=== PATIENT | female | born 1965 | race Caucasian/White ===

== ENCOUNTER 2021-12-27 13:25 | Inpatient (IN) | payer OTHER ==
[2021-12-27 15:24] LABS: BASO % 0.9 % (0-2.0); HEMATOCRIT 37.2 % (32.4-45.2); HEMOGLOBIN 12.9 GM/dL (10.7-15.3); LYMPH % 29.3 % (8-40); MCH 30.3 pg (25.7-33.7); MCHC 34.7 g/dl (32.0-36.0); MEAN CELL VOLUME 87.3 fl (80-96); MONO % 5.6 % (3.8-10.2); NEUT % 62.2 % (42.8-82.8); PLATELET COUNT 274 10^3/uL (134-434); RBC 4.26 M/mm3 (3.60-5.2); RDW 13.2 % (11.6-15.6); WHITE BLOOD COUNT 6.2 K/mm3 (4.0-10.0)
[2021-12-27 15:45] LABS: ALBUMIN 3.9 g/dl (3.4-5.0); BLOOD UREA NITROGEN 17.7 mg/dL (7-18); CALCIUM 9.6 mg/dL (8.5-10.1)
[2021-12-27] MEDS ORDERED: VANCOMYCIN 1 GM in D5W (PRE-DOCKED) 1,000 MG/250 ML IVPB ONE (15:48)
[2021-12-27] MEDS ORDERED: CEFTRIAXONE 1,000 MG in DEXTROSE 5%-WATER - 50 ML IVPB ONE (15:48)
[2021-12-27 15:49] LABS: CREATININE 0.6 mg/dL (0.55-1.3)
[2021-12-27 15:50] LABS: BILIRUBIN,TOTAL 0.4 mg/dL (0.2-1)
[2021-12-27] MEDS ORDERED: PIPERACILLIN/TAZOB 4.5 GM 4.5 GM in DEXTROSE 5%-WATER 100 ML IVPB ONE (16:02)
[2021-12-27] MEDS ORDERED: PIPERACILLIN/TAZOB 4.5 GM 4.5 GM/100 ML BAG IVPB ONE (16:07)
[2021-12-27] MEDS ORDERED: VANCOMYCIN 1 GRAM (PRE-DOCKED) 1,000 MG/250 ML BAG IVPB ONE (16:26)
[2021-12-27] MEDS: INSULIN SLIDING SCALE (NOVOLOG) 1 VIAL SQ SCH (16:37)
[2021-12-27 16:51] LABS: ACTIVATED PTT 32.8 SECONDS (25.2-36.5); INR 1.03 (0.83-1.09); PROTHROMBIN TIME (PATIENT) 11.8 SEC (9.7-13.0)
[2021-12-27] MEDS ORDERED: PIPERACILLIN/TAZOB 3.375 GM 3.375 GM in DEXTROSE 5%-WATER - 50 ML IVPB SCH (19:30)
[2021-12-27] MEDS ORDERED: ACETAMINOPHEN 1000 MG/100 ML BAG IVPB PRN (22:21)
[2021-12-27] MEDS ORDERED: ACETAMINOPHEN INJECTION 100 ML IVPB ONE (22:45)
[2021-12-28] MEDS ORDERED: PIPERACILLIN/TAZOBACTAM 3.375 GM VIAL IVPB ONE ×2 (00:20→08:20)
[2021-12-28] MEDS ORDERED: DEXTROSE 5%-WATER - 50 ML IVPB ONE ×3 (00:20→15:51)
[2021-12-28] MEDS: PIPERACILLIN/TAZOB 3.375 GM 3.375 GM in DEXTROSE 5%-WATER - 50 ML IVPB SCH ×2 (00:31→08:24)
[2021-12-28 02:07] VITALS: BMI 30.7
[2021-12-28] MEDS ORDERED: PIPERACILLIN/TAZOB 3.375 GM 3.375 GM in DEXTROSE 5%-WATER - 50 ML IVPB SCH ×2 (04:00→18:00)
[2021-12-28] MEDS: INSULIN SLIDING SCALE (NOVOLOG) 1 VIAL SQ SCH ×3 (06:03→16:38)
[2021-12-28 09:18] LABS: BASO % 0.7 % (0-2.0); EOS % 2.7 % (0-4.5); HEMATOCRIT 36.4 % (32.4-45.2); HEMOGLOBIN 12.3 GM/dL (10.7-15.3); LYMPH % 33.7 % (8-40); MCH 29.8 pg (25.7-33.7); MCHC 33.7 g/dl (32.0-36.0); MEAN CELL VOLUME 88.6 fl (80-96); MEAN PLT VOLUME 9.2 fl (7.5-11.1); MONO % 6.4 % (3.8-10.2); NEUT % 56.5 % (42.8-82.8); PLATELET COUNT 212 10^3/uL (134-434); RBC 4.11 M/mm3 (3.60-5.2); RDW 13.7 % (11.6-15.6); WHITE BLOOD COUNT 5.5 K/mm3 (4.0-10.0)
[2021-12-28 09:32] LABS: INR 1.06 (0.83-1.09); PROTHROMBIN TIME (PATIENT) 12.2 SEC (9.7-13.0)
[2021-12-28 09:33] LABS: CALCIUM 8.8 mg/dL (8.5-10.1)
[2021-12-28 09:34] LABS: ALBUMIN 3.4 g/dl (3.4-5.0); BLOOD UREA NITROGEN 19.4 mg/dL (7-18); MAGNESIUM 2.1 mg/dL (1.8-2.4)
[2021-12-28 09:35] LABS: ACTIVATED PTT 29.3 SECONDS (25.2-36.5)
[2021-12-28 09:37] LABS: CREATININE 0.7 mg/dL (0.55-1.3); PHOSPHOROUS 4.6 mg/dL (2.5-4.9)
[2021-12-28 09:39] LABS: BILIRUBIN,TOTAL 0.6 mg/dL (0.2-1)
[2021-12-28] MEDS ORDERED: VANCOMYCIN/WATER 1,250 MG/250 ML BAG IVPB SCH (10:45)
[2021-12-28] MEDS ORDERED: VANCOMYCIN/WATER BAGS 1,250 MG/250 ML BAG IVPB ONE (11:00)
[2021-12-28] MEDS ORDERED: SENNOSIDES 8.8 MG/5 ML BULK BOTTLE PO ONE (11:07)
[2021-12-28] MEDS ORDERED: DOCUSATE SODIUM 100 MG CAPSULE (FP) PO SCH (11:15)
[2021-12-28] MEDS ORDERED: POLYETHYLENE GLYCOL (HEALTHYLAX) 3350 17 GM PACKET PO SCH (14:00)
[2021-12-28] MEDS ORDERED: cefTRIAXone SODIUM 1 GM VIAL ONE (15:51)
[2021-12-28] MEDS: CEFTRIAXONE 1 GM in DEXTROSE 5%-WATER - 50 ML IVPB SCH (15:54)
[2021-12-28] MEDS: COLLAGENASE CLOSTRIDIUM HIST. 30 GRAMS TUBE TP SCH (16:38)
[2021-12-28] MEDS: VANCOMYCIN/WATER BAGS 1,250 MG/250 ML BAG IVPB SCH (23:30)
[2021-12-29] MEDS: INSULIN SLIDING SCALE (NOVOLOG) 1 VIAL SQ SCH ×3 (06:34→17:36)
[2021-12-29] MEDS ORDERED: DEXTROSE 5%-WATER - 50 ML IVPB ONE (08:52)
[2021-12-29] MEDS ORDERED: cefTRIAXone SODIUM 1 GM VIAL ONE (08:52)
[2021-12-29] MEDS: POLYETHYLENE GLYCOL (HEALTHYLAX) 3350 17 GM PACKET PO SCH (10:30)
[2021-12-29] MEDS: COLLAGENASE CLOSTRIDIUM HIST. 30 GRAMS TUBE TP SCH (10:31)
[2021-12-29] MEDS: VANCOMYCIN/WATER BAGS 1,250 MG/250 ML BAG IVPB SCH ×2 (10:50→22:02)
[2021-12-29] MEDS: CEFTRIAXONE 1 GM in DEXTROSE 5%-WATER - 50 ML IVPB SCH (10:50)
[2021-12-30] MEDS: INSULIN SLIDING SCALE (NOVOLOG) 1 VIAL SQ SCH ×3 (06:04→17:14)
[2021-12-30] MEDS ORDERED: DEXTROSE 5%-WATER - 50 ML IVPB ONE (08:33)
[2021-12-30] MEDS ORDERED: cefTRIAXone SODIUM 1 GM VIAL ONE (08:33)
[2021-12-30] MEDS: CEFTRIAXONE 1 GM in DEXTROSE 5%-WATER - 50 ML IVPB SCH (10:47)
[2021-12-30] MEDS: VANCOMYCIN/WATER BAGS 1,250 MG/250 ML BAG IVPB SCH ×2 (10:47→23:05)
[2021-12-30] MEDS: POLYETHYLENE GLYCOL (HEALTHYLAX) 3350 17 GM PACKET PO SCH (10:53)
[2021-12-30] MEDS: COLLAGENASE CLOSTRIDIUM HIST. 30 GRAMS TUBE TP SCH (10:53)
[2021-12-31] MEDS: INSULIN SLIDING SCALE (NOVOLOG) 1 VIAL SQ SCH ×3 (06:16→18:30)
[2021-12-31 09:19] LABS: BASO % 0.3 % (0-2.0); CALCIUM 8.7 mg/dL (8.5-10.1); EOS % 2.2 % (0-4.5); HEMATOCRIT 32.1 % (32.4-45.2); HEMOGLOBIN 11.5 GM/dL (10.7-15.3); LYMPH % 26.4 % (8-40); MCH 31.4 pg (25.7-33.7); MCHC 35.7 g/dl (32.0-36.0); MEAN CELL VOLUME 87.9 fl (80-96); MEAN PLT VOLUME 8.1 fl (7.5-11.1); MONO % 6.8 % (3.8-10.2); NEUT % 64.3 % (42.8-82.8); PLATELET COUNT 223 10^3/uL (134-434); RBC 3.66 M/mm3 (3.60-5.2); RDW 13.7 % (11.6-15.6); WHITE BLOOD COUNT 5.7 K/mm3 (4.0-10.0)
[2021-12-31] MEDS ORDERED: DEXTROSE 5%-WATER - 50 ML IVPB ONE (09:19)
[2021-12-31] MEDS ORDERED: ASPIRIN 325 MG TABLET PO STA (09:19)
[2021-12-31] MEDS ORDERED: cefTRIAXone SODIUM 1 GM VIAL ONE (09:19)
[2021-12-31] MEDS ORDERED: CLOPIDOGREL BISULFATE 300 MG TABLET PO STA (09:19)
[2021-12-31 09:20] LABS: BLOOD UREA NITROGEN 18.4 mg/dL (7-18)
[2021-12-31] MEDS: POLYETHYLENE GLYCOL (HEALTHYLAX) 3350 17 GM PACKET PO SCH (09:21)
[2021-12-31] MEDS: CEFTRIAXONE 1 GM in DEXTROSE 5%-WATER - 50 ML IVPB SCH (09:21)
[2021-12-31] MEDS: COLLAGENASE CLOSTRIDIUM HIST. 30 GRAMS TUBE TP SCH (09:21)
[2021-12-31 09:23] LABS: CREATININE 0.7 mg/dL (0.55-1.3)
[2021-12-31 10:35] LABS: INR 1.15 (0.83-1.09); PROTHROMBIN TIME (PATIENT) 13.2 SEC (9.7-13.0)
[2021-12-31] MEDS: VANCOMYCIN/WATER BAGS 1,250 MG/250 ML BAG IVPB SCH (11:48)
[2021-12-31] MEDS ORDERED: LIDOCAINE HCL 1%, 10 MG/ML (20ML VIAL) ONE (15:34)
[2021-12-31] MEDS ORDERED: MIDAZOLAM HCL 2 MG/2 ML SINGLE DOSE VIAL ONE ×2 (16:27)
[2021-12-31] MEDS ORDERED: ONDANSETRON 4 MG/2 ML VIAL IVPUSH PRN ×2 (16:29→18:48)
[2021-12-31] MEDS ORDERED: oxyCODONE HCL 5 MG TABLET PO PRN (16:29)
[2021-12-31] MEDS ORDERED: LACTATED RINGERS SOLUTION 1,000 ML IV SCH ×2 (16:30→18:48)
[2021-12-31] MEDS ORDERED: PROPOFOL 20 ML ONE ×3 (16:46→17:46)
[2021-12-31] MEDS ORDERED: HEPARIN NA (PORCINE) 5,000 UNITS/ML 1ML VIAL SQ ONE (16:55)
[2021-12-31] MEDS ORDERED: LIDOCAINE HCL 1%, 10 MG/ML (20ML VIAL) INF ONE ×2 (16:55)
[2021-12-31] MEDS ORDERED: hydrALAZINE HCL 20 MG/ML VIAL ONE (19:20)
[2021-12-31] MEDS ORDERED: hydrALAZINE HCL 20 MG/ML VIAL IVPUSH ONE (19:24)
[2021-12-31] MEDS: oxyCODONE HCL 5 MG TABLET PO PRN (22:40)
[2022-01-01] MEDS: INSULIN SLIDING SCALE (NOVOLOG) 1 VIAL SQ SCH ×2 (06:12→11:22)
[2022-01-01 08:44] LABS: BASO % 0.4 % (0-2.0); EOS % 2.6 % (0-4.5); HEMATOCRIT 33.1 % (32.4-45.2); HEMOGLOBIN 11.3 GM/dL (10.7-15.3); MCH 30.1 pg (25.7-33.7); MEAN CELL VOLUME 88.7 fl (80-96); MEAN PLT VOLUME 8.4 fl (7.5-11.1); MONO % 7.7 % (3.8-10.2); NEUT % 65.3 % (42.8-82.8); PLATELET COUNT 231 10^3/uL (134-434); RBC 3.74 M/mm3 (3.60-5.2); RDW 13.6 % (11.6-15.6); WHITE BLOOD COUNT 5.1 K/mm3 (4.0-10.0)
[2022-01-01] MEDS ORDERED: DEXTROSE 5%-WATER - 50 ML IVPB ONE (09:02)
[2022-01-01] MEDS ORDERED: cefTRIAXone SODIUM 1 GM VIAL ONE (09:02)
[2022-01-01 09:13] LABS: CALCIUM 8.7 mg/dL (8.5-10.1)
[2022-01-01 09:14] LABS: ALBUMIN 3.5 g/dl (3.4-5.0); BLOOD UREA NITROGEN 16.3 mg/dL (7-18)
[2022-01-01] MEDS: POLYETHYLENE GLYCOL (HEALTHYLAX) 3350 17 GM PACKET PO SCH ×2 (09:15→09:17)
[2022-01-01 09:17] LABS: CREATININE 0.6 mg/dL (0.55-1.3)
[2022-01-01 09:19] LABS: BILIRUBIN,TOTAL 0.7 mg/dL (0.2-1)
[2022-01-01] MEDS: GABAPENTIN 100 MG CAPSULE PO SCH ×2 (09:23→13:46)
[2022-01-01] MEDS ORDERED: ASPIRIN 81 MG CHEWABLE TABLETS PO SCH (10:00)
[2022-01-01] MEDS ORDERED: CLOPIDOGREL BISULFATE 75 MG TABLET (FP) PO SCH (10:00)
[2022-01-01] MEDS ORDERED: COLLAGENASE CLOSTRIDIUM HIST. 30 GRAMS TUBE TP SCH (10:00)
[2022-01-01] MEDS ORDERED: CEFTRIAXONE 1 GM in DEXTROSE 5%-WATER - 50 ML IVPB SCH (10:00)
[2022-01-01] MEDS ORDERED: INSULIN (NOVOLOG) ASPART 100 UNITS/ML 10ML VIAL ONE (11:21)
[2022-01-01] MEDS: oxyCODONE HCL 5 MG TABLET PO PRN (13:45)
[2022-01-01 13:55] VITALS: BP 136/59; PULSE 83; TEMP 98.4
== END 2022-01-01 16:17 | disposition home or self-care (01) | DRG 181 ==
LOC: JER 13:25 → JERBED 15:48 → J8W 12-28 00:05
PROVIDERS: ADMIT Internal Medicine; ATTEND Internal Medicine
PROC: 04CU3ZZ Extirpation of Matter from Left Peroneal Artery, Percutaneous Approach (ICD-10-PCS; 2021-12-31)
PROC: 047U3ZZ Dilation of Left Peroneal Artery, Percutaneous Approach (ICD-10-PCS; 2021-12-31)
PROC: 047N3Z1 Dilation of Left Popliteal Artery using Drug-Coated Balloon, Percutaneous Approach (ICD-10-PCS; 2021-12-31)
PROC: 04CN3ZZ Extirpation of Matter from Left Popliteal Artery, Percutaneous Approach (ICD-10-PCS; principal; 2021-12-31 16:00)
DX: E11.51 Type 2 diabetes mellitus with diabetic peripheral angiopathy without gangrene (principal); E11.621 Type 2 diabetes mellitus with foot ulcer; E11.42 Type 2 diabetes mellitus with diabetic polyneuropathy; I25.10 Atherosclerotic heart disease of native coronary artery without angina pectoris; L97.508 Non-pressure chronic ulcer of other part of unspecified foot with other specified severity; L03.116 Cellulitis of left lower limb; E66.9 Obesity, unspecified; Z68.30 Body mass index [BMI] 30.0-30.9, adult; L08.9 Local infection of the skin and subcutaneous tissue, unspecified; M19.90 Unspecified osteoarthritis, unspecified site; Z95.1 Presence of aortocoronary bypass graft
CPT/HCPCS: 36415; 73610-TC-LT-FY; 73630-TC-LT; 76000-TC-FY; 76881-LT; 80048; 80053; 82962; 83735; 84100; 85025; 85610; 85651; 85730; 86140; 86850; 86900; 86901; 93005; 93010; 93922; 93970-TC; 94760; 97116-GP; 97162-GP; 99285-25; C9803-CS; G0480; J1644; U0003; U0005

== ENCOUNTER 2023-10-17 12:59 | Emergency (ER) | payer OTHER ==
[2023-10-17 13:13] VITALS: BP 189/60; PULSE 65; RESP 18; TEMP 98.4; BMI 28.0
[2023-10-17] MEDS ORDERED: traMADol HCL 50 MG TABLET PO ONE (14:00)
[2023-10-17] MEDS ORDERED: traMADol HCL 50 MG TABLET ONE (14:20)
== END 2023-10-17 15:20 | disposition home or self-care (01) ==
LOC: JER 12:59
DX: M79.672 Pain in left foot (principal); E11.621 Type 2 diabetes mellitus with foot ulcer; L97.429 Non-pressure chronic ulcer of left heel and midfoot with unspecified severity
CPT/HCPCS: 99283-25

== ENCOUNTER 2023-10-22 16:12 | Inpatient (IN) | payer OTHER ==
[2023-10-22] MEDS ORDERED: ACETAMINOPHEN 1000 MG/100 ML BAG IVPB ONE (17:14)
[2023-10-22] MEDS ORDERED: VANCOMYCIN 1,000 MG in DEXTROSE 5%-WATER - 250 ML IVPB ONE (18:08)
[2023-10-22] MEDS ORDERED: PIPERACILLIN/TAZOB 3.375 GM 3.375 GM in DEXTROSE 5%-WATER - 50 ML IVPB ONE (18:09)
[2023-10-22] MEDS ORDERED: traMADol HCL 50 MG TABLET PO ONE (18:10)
[2023-10-22] MEDS ORDERED: traMADol HCL 50 MG TABLET ONE (18:30)
[2023-10-22] MEDS ORDERED: VANCOMYCIN 1 GRAM (PRE-DOCKED) 1,000 MG/250 ML BAG IVPB ONE (18:30)
[2023-10-22] MEDS ORDERED: PIPERACILLIN/TAZOB 3.375 GM 3.375 GM/50 ML BAG IVPB ONE (18:30)
[2023-10-22] MEDS ORDERED: VANCOMYCIN/WATER 1250 MG 1,250 MG/250 ML BAG IVPB ONE ×2 (19:16→20:31)
[2023-10-22 19:23] LABS: INR 1.04 (0.83-1.09); PROTHROMBIN TIME (PATIENT) 12.1 SEC (9.7-13.0)
[2023-10-22 19:26] LABS: ACTIVATED PTT 24.7 SECONDS (25.2-36.5)
[2023-10-22 19:57] LABS: BASO % 0.6 % (0-2.0); EOS % 1.8 % (0-4.5); HEMATOCRIT 34.6 % (32.4-45.2); HEMOGLOBIN 11.5 GM/dL (10.7-15.3); LYMPH % 28.5 % (8-40); MCHC 33.1 g/dl (32.0-36.0); MEAN CELL VOLUME 84.4 fl (80-96); MEAN PLT VOLUME 7.9 fl (7.5-11.1); MONO % 8.1 % (3.8-10.2); PLATELET COUNT 341 10^3/uL (134-434); RDW 13.9 % (11.6-15.6); WHITE BLOOD COUNT 5.2 K/mm3 (4.0-10.0)
[2023-10-22 20:13] LABS: CHLORIDE 96 mmol/L (98-107); POTASSIUM 4.8 mmol/L (3.5-5.1); SODIUM 132 mmol/L (136-145)
[2023-10-22 20:16] LABS: ALBUMIN 3.7 g/dl (3.4-5.0); ANION GAP 11 mmol/L (4-13); BLOOD UREA NITROGEN 19.5 mg/dL (7-18); CALCIUM 9.6 mg/dL (8.5-10.1); CO2 26 mmol/L (21-32)
[2023-10-22 20:19] LABS: CREATININE 0.8 mg/dL (0.55-1.3); SGOT/AST 12 U/L (15-37); SGPT/ALT 19 U/L (13-61)
[2023-10-22 20:20] LABS: TOT PROT 8.8 g/dl (6.4-8.2)
[2023-10-22 20:21] LABS: BILIRUBIN,TOTAL 0.5 mg/dL (0.2-1)
[2023-10-22 20:22] LABS: ALK PHOS 141 U/L (45-117)
[2023-10-22 20:50] LABS: ERYTHROCYTE SEDIMENTATION RATE 87 mm/hr (0-30)
[2023-10-22 21:04] LABS: GLUCOSE,RANDOM 426 mg/dL (74-106)
[2023-10-22] MEDS ORDERED: SODIUM CHLORIDE 0.9% 500 ML INFUS.BAG IV ONE (21:09)
[2023-10-22] MEDS ORDERED: INSULIN REGULAR HUMAN 100 UNITS/ML *VIAL SQ ONE (21:12)
[2023-10-22] MEDS ORDERED: INSULIN (NOVOLOG) ASPART 100 UNITS/ML 10ML VIAL ONE (21:30)
[2023-10-23] MEDS ORDERED: ACETAMINOPHEN 1000 MG/100 ML BAG IVPB PRN
[2023-10-23] MEDS ORDERED: traMADol HCL 50 MG TABLET ONE (03:52)
[2023-10-23] MEDS: traMADol HCL 50 MG TABLET PO PRN ×2 (03:54→16:16)
[2023-10-23] MEDS ORDERED: GABAPENTIN 100 MG CAPSULE ONE (06:00)
[2023-10-23] MEDS: GABAPENTIN 100 MG CAPSULE PO SCH ×3 (06:02→22:41)
[2023-10-23 06:58] LABS: BASO % 0.4 % (0-2.0); EOS % 1.8 % (0-4.5); HEMOGLOBIN 10.3 GM/dL (10.7-15.3); LYMPH % 28.8 % (8-40); MCH 27.9 pg (25.7-33.7); MCHC 33.3 g/dl (32.0-36.0); MEAN CELL VOLUME 83.8 fl (80-96); MEAN PLT VOLUME 7.9 fl (7.5-11.1); MONO % 8.8 % (3.8-10.2); NEUT % 60.2 % (42.8-82.8); PLATELET COUNT 297 10^3/uL (134-434); RBC 3.71 M/mm3 (3.60-5.2); RDW 13.9 % (11.6-15.6); WHITE BLOOD COUNT 4.3 K/mm3 (4.0-10.0)
[2023-10-23] MEDS ORDERED: REPAGLINIDE 2 MG TABLET (FP) PO SCH (07:00)
[2023-10-23 07:04] LABS: POTASSIUM 4.1 mmol/L (3.5-5.1)
[2023-10-23 07:11] LABS: ALBUMIN 3.1 g/dl (3.4-5.0); BLOOD UREA NITROGEN 14.3 mg/dL (7-18); CALCIUM 8.7 mg/dL (8.5-10.1)
[2023-10-23 07:16] LABS: BILIRUBIN,TOTAL 0.6 mg/dL (0.2-1); CREATININE 0.6 mg/dL (0.55-1.3); PHOSPHOROUS 3.8 mg/dL (2.5-4.9)
[2023-10-23 07:17] LABS: TOT PROT 7.1 g/dl (6.4-8.2)
[2023-10-23] MEDS ORDERED: INSULIN (NOVOLOG) ASPART 100 UNITS/ML 10ML VIAL ONE (08:50)
[2023-10-23] MEDS: ASPIRIN 81 MG CHEWABLE TABLETS PO SCH (09:00)
[2023-10-23] MEDS: REPAGLINIDE 1 MG TABLET PO SCH ×3 (09:00→16:37)
[2023-10-23] MEDS: PANTOPRAZOLE 40 MG TABLET PO SCH (09:00)
[2023-10-23] MEDS: INSULIN ASPART SLIDING SCALE (NOVOLOG) 1 VIAL SQ SCH ×3 (09:00→16:43)
[2023-10-23] MEDS: ENOXAPARIN NA (PORCINE) 40 MG/0.4 ML DISP.SYRIN SQ SCH (09:01)
[2023-10-23] MEDS: metoPROLOL SUCCINATE 25 MG TAB.SR.24H (FP) PO SCH (09:01)
[2023-10-23] MEDS: LISINOPRIL 20 MG TABLET PO SCH (09:01)
[2023-10-23] MEDS: COLLAGENASE CLOSTRIDIUM HIST. 30 GRAMS TUBE TP SCH (13:25)
[2023-10-23 14:47] VITALS: BMI 27.8
[2023-10-23] MEDS: CEFTRIAXONE 2 GM in DEXTROSE 5%-WATER 100 ML IVPB SCH (15:27)
[2023-10-23] MEDS: ATORVASTATIN CA 40 MG TABLET (FP) PO SCH (22:41)
[2023-10-24] MEDS: GABAPENTIN 100 MG CAPSULE PO SCH ×3 (05:48→21:43)
[2023-10-24] MEDS: INSULIN ASPART SLIDING SCALE (NOVOLOG) 1 VIAL SQ SCH ×3 (06:28→17:01)
[2023-10-24] MEDS: PANTOPRAZOLE 40 MG TABLET PO SCH (06:28)
[2023-10-24] MEDS: REPAGLINIDE 1 MG TABLET PO SCH ×3 (06:29→16:58)
[2023-10-24] MEDS: traMADol HCL 50 MG TABLET PO PRN ×2 (09:45→14:47)
[2023-10-24] MEDS: LISINOPRIL 20 MG TABLET PO SCH (09:47)
[2023-10-24] MEDS: metoPROLOL SUCCINATE 25 MG TAB.SR.24H (FP) PO SCH (09:47)
[2023-10-24] MEDS: ENOXAPARIN NA (PORCINE) 40 MG/0.4 ML DISP.SYRIN SQ SCH (09:47)
[2023-10-24] MEDS: ASPIRIN 81 MG CHEWABLE TABLETS PO SCH (09:47)
[2023-10-24] MEDS: CEFTRIAXONE 2 GM in DEXTROSE 5%-WATER 100 ML IVPB SCH (09:48)
[2023-10-24] MEDS: COLLAGENASE CLOSTRIDIUM HIST. 30 GRAMS TUBE TP SCH (09:57)
[2023-10-24 10:15] LABS: BASO % 0.2 % (0-2.0); EOS % 1.3 % (0-4.5); HEMATOCRIT 30.8 % (32.4-45.2); HEMOGLOBIN 9.9 GM/dL (10.7-15.3); LYMPH % 24.9 % (8-40); MCH 27.3 pg (25.7-33.7); MEAN CELL VOLUME 85.1 fl (80-96); MONO % 10.1 % (3.8-10.2); NEUT % 63.5 % (42.8-82.8); PLATELET COUNT 298 10^3/uL (134-434); RBC 3.62 M/mm3 (3.60-5.2); RDW 14.2 % (11.6-15.6); WHITE BLOOD COUNT 5.4 K/mm3 (4.0-10.0)
[2023-10-24 10:43] LABS: POTASSIUM 4.3 mmol/L (3.5-5.1)
[2023-10-24 10:49] LABS: BLOOD UREA NITROGEN 22.1 mg/dL (7-18)
[2023-10-24 10:50] LABS: CALCIUM 8.7 mg/dL (8.5-10.1)
[2023-10-24 10:52] LABS: CREATININE 0.8 mg/dL (0.55-1.3)
[2023-10-24 10:54] LABS: BILIRUBIN,TOTAL 0.3 mg/dL (0.2-1); TOT PROT 6.8 g/dl (6.4-8.2)
[2023-10-24] MEDS ORDERED: PIPERACILLIN/TAZOB 3.375 GM 3.375 GM in DEXTROSE 5%-WATER - 50 ML IVPB SCH ×2 (12:00→18:00)
[2023-10-24] MEDS: ATORVASTATIN CA 40 MG TABLET (FP) PO SCH (21:42)
[2023-10-25] MEDS: traMADol HCL 50 MG TABLET PO PRN ×2 (05:47→17:46)
[2023-10-25] MEDS: GABAPENTIN 100 MG CAPSULE PO SCH ×4 (05:50→21:04)
[2023-10-25] MEDS: PANTOPRAZOLE 40 MG TABLET PO SCH (06:33)
[2023-10-25] MEDS: REPAGLINIDE 1 MG TABLET PO SCH ×3 (06:33→17:03)
[2023-10-25] MEDS: INSULIN ASPART SLIDING SCALE (NOVOLOG) 1 VIAL SQ SCH ×6 (06:34→21:07)
[2023-10-25 09:04] LABS: BASO % 0.2 % (0-2.0); EOS % 1.4 % (0-4.5); HEMATOCRIT 30.2 % (32.4-45.2); HEMOGLOBIN 9.9 GM/dL (10.7-15.3); LYMPH % 34.2 % (8-40); MCH 27.4 pg (25.7-33.7); MCHC 32.8 g/dl (32.0-36.0); MEAN CELL VOLUME 83.6 fl (80-96); MEAN PLT VOLUME 7.9 fl (7.5-11.1); MONO % 8.8 % (3.8-10.2); NEUT % 55.4 % (42.8-82.8); PLATELET COUNT 289 10^3/uL (134-434); RBC 3.61 M/mm3 (3.60-5.2); RDW 14.2 % (11.6-15.6); WHITE BLOOD COUNT 5.4 K/mm3 (4.0-10.0)
[2023-10-25 09:23] LABS: POTASSIUM 4.1 mmol/L (3.5-5.1)
[2023-10-25 09:31] LABS: CALCIUM 8.9 mg/dL (8.5-10.1)
[2023-10-25 09:32] LABS: BLOOD UREA NITROGEN 18.5 mg/dL (7-18); MAGNESIUM 2.4 mg/dL (1.8-2.4)
[2023-10-25 09:35] LABS: BILIRUBIN,TOTAL 0.5 mg/dL (0.2-1); CREATININE 0.8 mg/dL (0.55-1.3)
[2023-10-25 09:36] LABS: TOT PROT 7.1 g/dl (6.4-8.2)
[2023-10-25] MEDS: ENOXAPARIN NA (PORCINE) 40 MG/0.4 ML DISP.SYRIN SQ SCH (09:37)
[2023-10-25] MEDS: ASPIRIN 81 MG CHEWABLE TABLETS PO SCH (09:37)
[2023-10-25] MEDS: CEFTRIAXONE 2 GM in DEXTROSE 5%-WATER 100 ML IVPB SCH (09:37)
[2023-10-25] MEDS: metoPROLOL SUCCINATE 25 MG TAB.SR.24H (FP) PO SCH (09:37)
[2023-10-25] MEDS: LISINOPRIL 20 MG TABLET PO SCH (09:38)
[2023-10-25] MEDS: COLLAGENASE CLOSTRIDIUM HIST. 30 GRAMS TUBE TP SCH (09:50)
[2023-10-25] MEDS: ATORVASTATIN CA 40 MG TABLET (FP) PO SCH (21:04)
[2023-10-26] MEDS ORDERED: ACETAMINOPHEN 1000 MG/100 ML BAG IVPB ONE ×2 (03:12→23:40)
[2023-10-26] MEDS: PANTOPRAZOLE 40 MG TABLET PO SCH (06:33)
[2023-10-26] MEDS: REPAGLINIDE 1 MG TABLET PO SCH ×3 (06:33→16:52)
[2023-10-26] MEDS: GABAPENTIN 100 MG CAPSULE PO SCH ×3 (06:33→21:20)
[2023-10-26] MEDS: INSULIN ASPART SLIDING SCALE (NOVOLOG) 1 VIAL SQ SCH ×4 (06:34→21:21)
[2023-10-26] MEDS: metoPROLOL SUCCINATE 25 MG TAB.SR.24H (FP) PO SCH (10:42)
[2023-10-26] MEDS: LISINOPRIL 20 MG TABLET PO SCH (10:42)
[2023-10-26] MEDS: ENOXAPARIN NA (PORCINE) 40 MG/0.4 ML DISP.SYRIN SQ SCH (10:42)
[2023-10-26] MEDS: ASPIRIN 81 MG CHEWABLE TABLETS PO SCH (10:42)
[2023-10-26] MEDS: CEFTRIAXONE 2 GM in DEXTROSE 5%-WATER 100 ML IVPB SCH (10:43)
[2023-10-26] MEDS: COLLAGENASE CLOSTRIDIUM HIST. 30 GRAMS TUBE TP SCH (10:45)
[2023-10-26] MEDS ORDERED: ACETAMINOPHEN 500 MG TABLET (FP) PO ONE (17:27)
[2023-10-26] MEDS: ATORVASTATIN CA 40 MG TABLET (FP) PO SCH (21:20)
[2023-10-27] MEDS: traMADol HCL 50 MG TABLET PO PRN ×2 (04:48→17:34)
[2023-10-27] MEDS: GABAPENTIN 100 MG CAPSULE PO SCH ×4 (06:38→22:24)
[2023-10-27] MEDS: PANTOPRAZOLE 40 MG TABLET PO SCH (06:38)
[2023-10-27] MEDS: INSULIN ASPART SLIDING SCALE (NOVOLOG) 1 VIAL SQ SCH ×4 (06:39→21:56)
[2023-10-27] MEDS: REPAGLINIDE 1 MG TABLET PO SCH ×3 (06:43→16:42)
[2023-10-27] MEDS: ENOXAPARIN NA (PORCINE) 40 MG/0.4 ML DISP.SYRIN SQ SCH (09:52)
[2023-10-27] MEDS: ASPIRIN 81 MG CHEWABLE TABLETS PO SCH (09:52)
[2023-10-27] MEDS: LISINOPRIL 20 MG TABLET PO SCH (09:53)
[2023-10-27] MEDS: CEFTRIAXONE 2 GM in DEXTROSE 5%-WATER 100 ML IVPB SCH (09:54)
[2023-10-27] MEDS: COLLAGENASE CLOSTRIDIUM HIST. 30 GRAMS TUBE TP SCH (09:54)
[2023-10-27] MEDS: metoPROLOL SUCCINATE 25 MG TAB.SR.24H (FP) PO SCH (09:55)
[2023-10-27] MEDS: ATORVASTATIN CA 40 MG TABLET (FP) PO SCH ×2 (21:56→22:25)
[2023-10-28] MEDS: INSULIN ASPART SLIDING SCALE (NOVOLOG) 1 VIAL SQ SCH ×4 (06:22→21:59)
[2023-10-28] MEDS: PANTOPRAZOLE 40 MG TABLET PO SCH (06:22)
[2023-10-28] MEDS: GABAPENTIN 100 MG CAPSULE PO SCH ×3 (06:22→21:53)
[2023-10-28] MEDS: REPAGLINIDE 1 MG TABLET PO SCH ×3 (06:24→17:41)
[2023-10-28] MEDS: ENOXAPARIN NA (PORCINE) 40 MG/0.4 ML DISP.SYRIN SQ SCH (11:10)
[2023-10-28] MEDS: ASPIRIN 81 MG CHEWABLE TABLETS PO SCH (11:11)
[2023-10-28] MEDS: LISINOPRIL 20 MG TABLET PO SCH (11:11)
[2023-10-28] MEDS: traMADol HCL 50 MG TABLET PO PRN ×2 (11:11→17:36)
[2023-10-28] MEDS: metoPROLOL SUCCINATE 25 MG TAB.SR.24H (FP) PO SCH (11:12)
[2023-10-28] MEDS: COLLAGENASE CLOSTRIDIUM HIST. 30 GRAMS TUBE TP SCH (11:16)
[2023-10-28] MEDS: ATORVASTATIN CA 40 MG TABLET (FP) PO SCH (21:53)
[2023-10-29] MEDS: GABAPENTIN 100 MG CAPSULE PO SCH ×3 (05:58→21:55)
[2023-10-29] MEDS: REPAGLINIDE 1 MG TABLET PO SCH ×3 (06:02→16:40)
[2023-10-29] MEDS: PANTOPRAZOLE 40 MG TABLET PO SCH (06:02)
[2023-10-29] MEDS: INSULIN ASPART SLIDING SCALE (NOVOLOG) 1 VIAL SQ SCH ×4 (06:03→22:13)
[2023-10-29] MEDS: metoPROLOL SUCCINATE 25 MG TAB.SR.24H (FP) PO SCH (09:13)
[2023-10-29] MEDS: ENOXAPARIN NA (PORCINE) 40 MG/0.4 ML DISP.SYRIN SQ SCH (09:13)
[2023-10-29] MEDS: LISINOPRIL 20 MG TABLET PO SCH (09:14)
[2023-10-29] MEDS: ASPIRIN 81 MG CHEWABLE TABLETS PO SCH (09:14)
[2023-10-29] MEDS: COLLAGENASE CLOSTRIDIUM HIST. 30 GRAMS TUBE TP SCH (09:16)
[2023-10-29] MEDS: traMADol HCL 50 MG TABLET PO PRN ×3 (09:17→21:55)
[2023-10-29] MEDS: ATORVASTATIN CA 40 MG TABLET (FP) PO SCH (21:55)
[2023-10-30] MEDS: PANTOPRAZOLE 40 MG TABLET PO SCH (06:24)
[2023-10-30] MEDS: GABAPENTIN 100 MG CAPSULE PO SCH ×3 (06:24→21:33)
[2023-10-30] MEDS: REPAGLINIDE 1 MG TABLET PO SCH ×3 (06:24→16:46)
[2023-10-30] MEDS: INSULIN ASPART SLIDING SCALE (NOVOLOG) 1 VIAL SQ SCH ×4 (06:27→21:34)
[2023-10-30] MEDS ORDERED: MIDAZOLAM HCL 2 MG/2 ML SINGLE DOSE VIAL ONE (08:13)
[2023-10-30] MEDS ORDERED: LIDOCAINE HCL 2% (50ML VIAL) INF ONE (08:34)
[2023-10-30] MEDS ORDERED: BUPIVACAINE HCL/PF 0.5% (5MG/ML) 10 ML VIAL IJ ONE (08:36)
[2023-10-30] MEDS ORDERED: GENTAMICIN SO4 80 MG/2 ML VIAL IVPB ONE (08:40)
[2023-10-30] MEDS ORDERED: SODIUM CHLORIDE 0.9% P/F 10 ML VIAL IJ ONE (08:42)
[2023-10-30] MEDS ORDERED: ONDANSETRON 4 MG/2 ML VIAL ONE (08:42)
[2023-10-30] MEDS ORDERED: ACETAMINOPHEN INJECTION 100 ML IVPB ONE (08:42)
[2023-10-30] MEDS ORDERED: KETOROLAC TROMETHAMINE 30 MG/1 ML VIAL ONE (08:42)
[2023-10-30] MEDS ORDERED: ceFAZolin SODIUM 1 GM VIAL ONE (08:42)
[2023-10-30] MEDS ORDERED: SEVOFLURANE 250 ML BTL ONE (08:42)
[2023-10-30] MEDS ORDERED: ceFAZolin SODIUM 1 GM VIAL IVPB ONE (08:45)
[2023-10-30] MEDS: ASPIRIN 81 MG CHEWABLE TABLETS PO SCH (09:20)
[2023-10-30] MEDS: LISINOPRIL 20 MG TABLET PO SCH (09:20)
[2023-10-30] MEDS: metoPROLOL SUCCINATE 25 MG TAB.SR.24H (FP) PO SCH (09:20)
[2023-10-30] MEDS: COLLAGENASE CLOSTRIDIUM HIST. 30 GRAMS TUBE TP SCH (09:21)
[2023-10-30] MEDS: CEFTRIAXONE 2 GM in DEXTROSE 5%-WATER 100 ML IVPB SCH (14:36)
[2023-10-30] MEDS: ATORVASTATIN CA 40 MG TABLET (FP) PO SCH (21:33)
[2023-10-31] MEDS ORDERED: ACETAMINOPHEN 1000 MG/100 ML BAG IVPB PRN (04:53)
[2023-10-31] MEDS: GABAPENTIN 100 MG CAPSULE PO SCH ×3 (05:10→21:12)
[2023-10-31] MEDS: INSULIN ASPART SLIDING SCALE (NOVOLOG) 1 VIAL SQ SCH ×4 (06:13→21:14)
[2023-10-31] MEDS: PANTOPRAZOLE 40 MG TABLET PO SCH (06:14)
[2023-10-31] MEDS: REPAGLINIDE 1 MG TABLET PO SCH ×3 (06:14→17:39)
[2023-10-31] MEDS: traMADol HCL 50 MG TABLET PO PRN ×3 (08:35→21:12)
[2023-10-31] MEDS: metoPROLOL SUCCINATE 25 MG TAB.SR.24H (FP) PO SCH (09:17)
[2023-10-31] MEDS: LISINOPRIL 20 MG TABLET PO SCH (09:17)
[2023-10-31] MEDS: ENOXAPARIN NA (PORCINE) 40 MG/0.4 ML DISP.SYRIN SQ SCH (09:17)
[2023-10-31] MEDS: ASPIRIN 81 MG CHEWABLE TABLETS PO SCH (09:17)
[2023-10-31] MEDS: CEFTRIAXONE 2 GM in DEXTROSE 5%-WATER 100 ML IVPB SCH (09:21)
[2023-10-31] MEDS: COLLAGENASE CLOSTRIDIUM HIST. 30 GRAMS TUBE TP SCH (15:17)
[2023-10-31] MEDS: PIPERACILLIN/TAZOB 3.375 GM 3.375 GM in DEXTROSE 5%-WATER - 50 ML IVPB SCH (17:39)
[2023-10-31] MEDS: ATORVASTATIN CA 40 MG TABLET (FP) PO SCH (21:13)
[2023-11-01] MEDS: PIPERACILLIN/TAZOB 3.375 GM 3.375 GM in DEXTROSE 5%-WATER - 50 ML IVPB SCH ×3 (01:25→17:34)
[2023-11-01] MEDS: GABAPENTIN 100 MG CAPSULE PO SCH ×3 (05:07→21:28)
[2023-11-01] MEDS: REPAGLINIDE 1 MG TABLET PO SCH ×3 (06:19→17:35)
[2023-11-01] MEDS: PANTOPRAZOLE 40 MG TABLET PO SCH (06:19)
[2023-11-01] MEDS: INSULIN ASPART SLIDING SCALE (NOVOLOG) 1 VIAL SQ SCH ×4 (07:00→21:29)
[2023-11-01] MEDS: traMADol HCL 50 MG TABLET PO PRN ×2 (08:58→17:34)
[2023-11-01] MEDS: LISINOPRIL 20 MG TABLET PO SCH (10:27)
[2023-11-01] MEDS: metoPROLOL SUCCINATE 25 MG TAB.SR.24H (FP) PO SCH (10:27)
[2023-11-01] MEDS: ENOXAPARIN NA (PORCINE) 40 MG/0.4 ML DISP.SYRIN SQ SCH (10:27)
[2023-11-01] MEDS: ASPIRIN 81 MG CHEWABLE TABLETS PO SCH (10:27)
[2023-11-01] MEDS: COLLAGENASE CLOSTRIDIUM HIST. 30 GRAMS TUBE TP SCH (10:31)
[2023-11-01] MEDS: ATORVASTATIN CA 40 MG TABLET (FP) PO SCH (21:28)
[2023-11-02] MEDS: PIPERACILLIN/TAZOB 3.375 GM 3.375 GM in DEXTROSE 5%-WATER - 50 ML IVPB SCH ×3 (01:33→17:35)
[2023-11-02] MEDS: traMADol HCL 50 MG TABLET PO PRN ×3 (03:44→17:34)
[2023-11-02] MEDS: PANTOPRAZOLE 40 MG TABLET PO SCH (06:47)
[2023-11-02] MEDS: GABAPENTIN 100 MG CAPSULE PO SCH ×3 (06:48→21:45)
[2023-11-02] MEDS: REPAGLINIDE 1 MG TABLET PO SCH ×3 (06:48→17:35)
[2023-11-02] MEDS: INSULIN ASPART SLIDING SCALE (NOVOLOG) 1 VIAL SQ SCH ×4 (06:49→21:51)
[2023-11-02] MEDS: ENOXAPARIN NA (PORCINE) 40 MG/0.4 ML DISP.SYRIN SQ SCH (09:39)
[2023-11-02] MEDS: LISINOPRIL 20 MG TABLET PO SCH (09:39)
[2023-11-02] MEDS: ASPIRIN 81 MG CHEWABLE TABLETS PO SCH (09:39)
[2023-11-02] MEDS: metoPROLOL SUCCINATE 25 MG TAB.SR.24H (FP) PO SCH (09:39)
[2023-11-02] MEDS: COLLAGENASE CLOSTRIDIUM HIST. 30 GRAMS TUBE TP SCH (09:51)
[2023-11-02 14:33] VITALS: RESP 18
[2023-11-02] MEDS: ATORVASTATIN CA 40 MG TABLET (FP) PO SCH (21:45)
[2023-11-03] MEDS: PIPERACILLIN/TAZOB 3.375 GM 3.375 GM in DEXTROSE 5%-WATER - 50 ML IVPB SCH ×3 (01:55→17:27)
[2023-11-03] MEDS: traMADol HCL 50 MG TABLET PO PRN ×3 (02:29→21:31)
[2023-11-03] MEDS: GABAPENTIN 100 MG CAPSULE PO SCH ×3 (06:08→21:31)
[2023-11-03] MEDS: PANTOPRAZOLE 40 MG TABLET PO SCH (06:08)
[2023-11-03] MEDS: REPAGLINIDE 1 MG TABLET PO SCH ×3 (06:08→17:27)
[2023-11-03] MEDS: INSULIN ASPART SLIDING SCALE (NOVOLOG) 1 VIAL SQ SCH ×4 (06:09→21:32)
[2023-11-03] MEDS: LISINOPRIL 20 MG TABLET PO SCH (09:30)
[2023-11-03] MEDS: ASPIRIN 81 MG CHEWABLE TABLETS PO SCH (09:30)
[2023-11-03] MEDS: metoPROLOL SUCCINATE 25 MG TAB.SR.24H (FP) PO SCH (09:30)
[2023-11-03] MEDS: ENOXAPARIN NA (PORCINE) 40 MG/0.4 ML DISP.SYRIN SQ SCH (09:31)
[2023-11-03] MEDS: COLLAGENASE CLOSTRIDIUM HIST. 30 GRAMS TUBE TP SCH (09:31)
[2023-11-03] MEDS ORDERED: amLODIPine BESYLATE 5 MG TABLET (FP) PO SCH (14:00)
[2023-11-03] MEDS: ATORVASTATIN CA 40 MG TABLET (FP) PO SCH (21:31)
[2023-11-03 21:54] VITALS: BP 172/76; PULSE 63; TEMP 98.4
== END 2023-11-03 23:45 | disposition home or self-care (01) | DRG 344 ==
LOC: JER 16:12 → JERBED 19:11 → J6S 10-23 09:51
PROVIDERS: ADMIT Internal Medicine; ATTEND Internal Medicine
PROC: 0QBM3ZX Excision of Left Tarsal, Percutaneous Approach, Diagnostic (ICD-10-PCS; 2023-10-30)
PROC: 0HBNXZX Excision of Left Foot Skin, External Approach, Diagnostic (ICD-10-PCS; principal; 2023-10-30 08:30)
PROC: 05HY33Z Insertion of Infusion Device into Upper Vein, Percutaneous Approach (ICD-10-PCS; 2023-11-03)
DX: E11.69 Type 2 diabetes mellitus with other specified complication (principal); M86.9 Osteomyelitis, unspecified; E11.40 Type 2 diabetes mellitus with diabetic neuropathy, unspecified; E11.621 Type 2 diabetes mellitus with foot ulcer; E11.51 Type 2 diabetes mellitus with diabetic peripheral angiopathy without gangrene; L03.116 Cellulitis of left lower limb; I10 Essential (primary) hypertension; L97.529 Non-pressure chronic ulcer of other part of left foot with unspecified severity
CPT/HCPCS: 36415; 36569; 73630-TC-LT; 73718-TC-LT; 80053; 82962; 83036; 83735; 84100; 85025; 85610; 85651; 85730; 86140; 86850; 86900; 86901; 87040; 87070; 87075; 87186; 87205; 88304-TC; 93005; 93010; 99285-25; J0131

== ENCOUNTER 2023-11-04 11:59 | Day surgery (SDC) | payer OTHER ==
[2023-11-04] MEDS ORDERED: DALBAVANCIN HCL 1,500 MG in DEXTROSE 5%-WATER - 500 ML IVPB ONE (12:45)
[2023-11-04 13:38] VITALS: BP 165/55; PULSE 75; RESP 19; TEMP 98.9
== END 2023-11-04 13:40 | disposition home or self-care (01) ==
LOC: FINFUSION 11:59 → FM/S 12:01 → FINFUSION 13:40
PROVIDERS: ATTEND Internal Medicine Infectious Disease
DX: L03.116 Cellulitis of left lower limb (principal); M86.8X7 Other osteomyelitis, ankle and foot; I10 Essential (primary) hypertension; E11.9 Type 2 diabetes mellitus without complications
CPT/HCPCS: 96365; 96367; J0875

== ENCOUNTER 2023-11-11 13:13 | Day surgery (SDC) | payer OTHER ==
[2023-11-11] MEDS: DALBAVANCIN HCL 1,500 MG in DEXTROSE 5%-WATER - 500 ML IVPB ONE (14:00)
[2023-11-11 17:26] VITALS: BP 152/82; PULSE 79; RESP 16; TEMP 98.7
== END 2023-11-11 15:46 | disposition home or self-care (01) ==
LOC: FINFUSION 13:13 → FM/S 13:24 → FINFUSION 15:46
PROVIDERS: ATTEND Internal Medicine Infectious Disease
DX: L03.116 Cellulitis of left lower limb (principal); M86.8X7 Other osteomyelitis, ankle and foot; E11.42 Type 2 diabetes mellitus with diabetic polyneuropathy; I10 Essential (primary) hypertension
CPT/HCPCS: 96365; J0875